=== PATIENT | male | born 1960 | race Caucasian/White ===

== ENCOUNTER → 2016-05-24 | Day surgery (SDC) | payer OTHER ==
[~2016-05-24] MED LIST: AMIT75TA6 PO; BACL10TA PO; BUPIVACAINE/EPINEPHRINE 0.5% PF 30 ML VIAL ONE; HYDR10SO PO; LACTATED RINGER'S 1000 ML INJ 1,000 ML ONE; MIDAZOLAM HCL 2 MG/2 ML VIAL ONE; OXYC40TA20 PO; PRAV40TA2 PO; PROPOFOL 200 MG/20 ML AMP IV ONE; SERT100 PO; TAB-TAB PO; VASO10TA8 PO; ZITHTAB PO; ceFAZolin INJ 1,000 MG VIAL ONE
--- NOTE | 2016-05-27 07:31 | MP ---
cc: KRISTA JUNG M.D. DATE OF SURGERY 05/24/2016 PREOPERATIVE DIAGNOSIS Left knee medial and lateral meniscus tear. POSTOPERATIVE DIAGNOSIS Left knee medial and lateral meniscus tear. PROCEDURE Left knee arthroscopic partial medial and lateral meniscectomy. SURGEON Dr. Krista Jung ANESTHESIA General. ESTIMATED BLOOD LOSS Less than 10 cc. TOURNIQUET TIME 0 minutes. COMPLICATIONS None. JUSTIFICATION The patient is a 56-year-old male who injured his left knee and has had pain and swelling in regards to this condition with failure of conservative treatment. Clinical exam as well as MRI confirmed the above-named findings. The patient was counseled as to risks, benefits and alternatives to the above-named proposed surgical procedure. He did wish to proceed with surgery. PROCEDURE IN DETAIL Written consent was obtained. The patient was identified, taken to the operating room, placed supine on the operating room table. General anesthesia was administered as well as 1 gram of IV Ancef. The left thigh was carefully placed in a well-padded leg aceves. All bony prominences and pressure points were well padded. The left lower extremity was prepped and draped using isopropyl alcohol, Hibiclens solution and DuraPrep solution. After appropriate time-out was performed, a medial and lateral parapatellar arthroscopic portal was established. The patellofemoral joint revealed slight grade 2 chondromalacia. The medial compartment revealed a large complex tear in the posterior horn of the medial meniscus. An arthroscopic biter followed arthroscopic shaver was then introduced into the medial compartment to perform a partial meniscectomy. The meniscal rim was probed and noted to be stable after meniscectomy. There were some early grade 2 chondromalacia changes in the medial femoral condyle. The intercondylar notch revealed the anterior and posterior cruciate ligaments to be intact. The lateral compartment revealed an unstable tear, radial pattern mid-bilateral meniscus. An arthroscopic biter followed by an arthroscopic shaver was introduced into the lateral compartment to perform a partial lateral meniscectomy. The meniscal rim was again probed and noted to be stable after the meniscectomy. At the conclusion of the surgical procedure, 30 cc of 0.5% Marcaine with epinephrine was injected into the knee joint. The arthroscopic portals were closed with 3-0 Prolene suture. Sterile dressing was applied. The patient tolerated the procedure well with no intraoperative complication noted. MD ISHMAEL Sheth/GAYATHRI /8:59 AM /7:23 AM
== END | disposition home or self-care (01) ==
LOC: ESDC 07:13
PROVIDERS: ATTEND Orthopaedic Surgery Sports Medicine
DX: S83.232A Complex tear of medial meniscus, current injury, left knee, initial encounter (principal); S83.282A Other tear of lateral meniscus, current injury, left knee, initial encounter
CPT/HCPCS: 01400; 29880; J0690; J2250; J3010; J7120